=== PATIENT | male | born 1980 | race Two or more races ===

== ENCOUNTER 2017-11-29 16:49 | Emergency (ER) | payer OTHER, MEDICAID ==
[~2017-11-29] VITALS: Ht 167.6 cm; Wt 90.7 kg
[2017-11-29] MEDS: PANTOPRAZOLE 80 MG in IV NS 0.9% 100 ML IV ONE (17:00)
--- NOTE | 2017-11-29 17:00 | NUR ---
[id number] FROM HOME: NAUSEA, VOMITING, EPIGASTRIC PAIN. SEEN BY MD FOR EVAL. NOTED IN DISTRESS. ELEVATED BP. IV ACCESS [employer]. SAFETY AND COMFORT MEASURES PROVIDED. WILL MONITOR.
[2017-11-29] MEDS ORDERED: ONDANSETRON HCL/PF 4 MG/2 ML VIAL ONE ×2 (17:06→23:44)
[2017-11-29] MEDS: ONDANSETRON HCL/PF 4 MG/2 ML VIAL IVP ONE (17:14)
[2017-11-29] MEDS: IV NS 0.9% 1,000 ML BAG IV ONE (17:14)
--- NOTE | 2017-11-29 17:16 | NUR ---
FLATWORK WASHER AT FOR BLOOD DRAW.
[2017-11-29 17:26] LABS: BASOPHILS # (AUTO) 0.1 /CMM (0.0-0.2); BASOPHILS % (AUTO) 1.4 % (0.0-2.0); EOSINOPHILS % (AUTO) 0.1 % (0.0-6.0); HEMATOCRIT 47 % (39-51); HEMOGLOBIN 16.7 g/dL (13.5-17.5); LYMPHOCYTES # (AUTO) 1.2 /CMM (0.8-4.8); LYMPHOCYTES % (AUTO) 11.5 % (20.0-44.0); MEAN CORPUSCULAR HEMOGLOBIN 31 PG (26.0-33.0); MEAN CORPUSCULAR HGB CONC 35 g/dl (31.0-36.0); MEAN CORPUSCULAR VOLUME 86 fL (80-96); MONOCYTES # (AUTO) 0.9 /CMM (0.1-1.30); NEUTROPHILS # (AUTO) 8.5 /CMM (1.8-8.9); PLATELET COUNT (AUTO) 252 /CMM (150-450); RDW COEFFICIENT OF VARIATION 12.2 (11.5-15.0); RED BLOOD CELL COUNT(AUTO) 5.46 MIL/uL (4.5-6.0); WHITE BLOOD COUNT (AUTO) 10.7 K/uL (4.3-11.0)
[2017-11-29 17:40] LABS: CALCIUM, SERUM 9.5 mg/dL (8.5-10.1); CREATININE 0.9 mg/dL (0.6-1.3); INR 1.04 (0.85-1.15); POTASSIUM 3.7 mmol/L (3.5-5.1)
[2017-11-29] MEDS: PANTOPRAZOLE 80 MG in IV NS 0.9% 500 ML IV ONE (17:40)
--- NOTE | 2017-11-29 17:44 | NUR ---
CALLED [facility] F[employer] FLOOR [employer]ER DR MICHAEL DR WAS PAGED.
[2017-11-29 17:45] LABS: BILIRUBIN,DIRECT 0.3 mg/dL (0.0-0.2); BILIRUBIN,TOTAL 1.3 mg/dL (0.2-1.0); TOTAL PROTEIN, SERUM 8.1 g/dL (6.4-8.2)
[2017-11-29] MEDS ORDERED: METOCLOPRAMIDE HCL 10 MG/2 ML VIAL ONE (17:56)
[2017-11-29] MEDS: METOCLOPRAMIDE HCL 10 MG/2 ML VIAL IV ONE (17:59)
[2017-11-29] MEDS ORDERED: GLUCAGON,HUMAN RECOMBINANT 1 MG/VIAL VIAL ONE (18:08)
[2017-11-29] MEDS ORDERED: WATER FOR INJECTION,STERILE 10 ML ONE (18:09)
[2017-11-29] MEDS: IV NS 0.9% 1,000 ML IV ONE (18:13)
[2017-11-29] MEDS: GLUCAGON,HUMAN RECOMBINANT 1 MG/VIAL VIAL IV ONE (18:13)
[2017-11-29] MEDS ORDERED: ATOR40TA PO (18:32)
[2017-11-29] MEDS ORDERED: BENA20TA9 PO (18:32)
[2017-11-29] MEDS ORDERED: METF10004 PO (18:32)
[2017-11-29] MEDS ORDERED: ASPI-1153 PO (18:32)
[2017-11-29] MEDS ORDERED: INSU100V27 SQ (18:32)
[2017-11-29] MEDS ORDERED: PANT40TA4 PO (18:32)
[2017-11-29] MEDS ORDERED: METO-356 PO (18:32)
--- NOTE | 2017-11-29 19:10 | NUR ---
CALLED [facility] FRINGE KNOTTER DR DEBORAH DR WAS PAGED.
--- NOTE | 2017-11-29 19:26 | NUR ---
CALLED [facility] TITLE [employer] [address] DR RODRIGUEZ, WAS REPAGED.
--- NOTE | 2017-11-29 19:33 | NUR ---
DR RODRIGUEZ CALLED BACK, ON THE PHONE WITH DR GONZALEZ.
[2017-11-29] MEDS ORDERED: ANESTHESIA TRAY IN PYXIS 1 EA TRAY MC ONE (20:43)
--- NOTE | 2017-11-29 20:47 | NUR ---
Pt TAKEN TO OR FOR SURGERY DUE TO ESOPHAGEAL IMPACTION.
[2017-11-29] MEDS ORDERED: SUCCINYLCHOLINE CHLORIDE 20 MG/ML VIAL ONE (21:08)
--- NOTE | 2017-11-29 22:00 | NUR ---
WAITING FOR TO WEBBING INSPECTOR Pt
[2017-11-29] MEDS: ONDANSETRON HCL/PF 4 MG/2 ML VIAL IV PRN (23:44)
--- NOTE | 2017-11-29 23:58 | NUR ---
Patient discharged to home in stable condition. Written and verbal after care instructions given. Patient verbalizes understanding of instruction. VS stable. it taking pt home.
--- NOTE | 2017-11-29 23:58 | NUR ---
HAS ARRIVED TO TAKE Pt HOME
[2017-11-30] VITALS: BP 132/82
== END 2017-11-30 00:02 | disposition home or self-care (01) ==
LOC: ER 16:50 → UNDOADMIN 20:45 → MED 20:45 → UNDODISIN 11-30 01:04
PROC: 0DB68ZX Excision of Stomach, Via Natural or Artificial Opening Endoscopic, Diagnostic (ICD-10-PCS; principal; 2017-11-29 21:21)
DX: K21.0 Gastro-esophageal reflux disease with esophagitis (principal); K29.70 Gastritis, unspecified, without bleeding; R13.10 Dysphagia, unspecified; E78.5 Hyperlipidemia, unspecified; I10 Essential (primary) hypertension; E11.9 Type 2 diabetes mellitus without complications; Z79.4 Long term (current) use of insulin; Z79.82 Long term (current) use of aspirin; Z79.84 Long term (current) use of oral hypoglycemic drugs
CPT/HCPCS: 36415; 80048-TC; 80076-TC; 83690-TC; 85025-TC; 85730-TC; 86850-TC; 87081-TC; 88305-TC; 88313-TC; 88342; A4606; C9113; J0330; J1100; J1610; J2405; J2704; J2765; J3490; J7030; J7040; Z7610